=== PATIENT | male | born 1970 ===

== ENCOUNTER 2019-03-20 05:00 | Inpatient (IN) | payer OTHER ==
[~2019-03-20 05:00] MED LIST: TAMS0.4C PO
== END 2019-03-21 12:47 | disposition home or self-care (01) | DRG 983 ==
LOC: CIR.AMB 05:00 → O/R 11:53 → SURG 13:09
PROVIDERS: ADMIT Urology
PROC: 0TVC8ZZ Restriction of Bladder Neck, Via Natural or Artificial Opening Endoscopic (ICD-10-PCS; principal; 2019-03-20 07:00)
DX: N40.1 Benign prostatic hyperplasia with lower urinary tract symptoms (principal); R33.8 Other retention of urine